=== PATIENT | male | born 1940 | race Caucasian/White ===

== ENCOUNTER 2022-07-17 18:02 | Observation (INO) | payer MEDICARE ==
[~2022-07-17] VITALS: Ht 185.5 cm; Wt 90.4 kg
[2022-07-17 18:34] LABS: BASOPHILS % (AUTO) 0 % (0-10); EOSINOPHILS % (AUTO) 0 % (0-10); HEMATOCRIT 40 % (40-54); HEMOGLOBIN 14.1 g/dL (13.3-17.7); LYMPHOCYTES # (AUTO) 1.9 10^3/uL (1.0-4.0); LYMPHOCYTES % (AUTO) 33 % (12-44); MEAN CORPUSCULAR HEMOGLOBIN 32 pg (25-34); MEAN CORPUSCULAR HGB CONC 35 g/dL (32-36); MEAN CORPUSCULAR VOLUME 91 fL (80-99); MEAN PLATELET VOLUME 9.5 fL (9.0-12.2); MONOCYTES # (AUTO) 0.7 10^3/uL (0.0-1.0); MONOCYTES % (AUTO) 12 % (0-12); NEUTROPHILS # (AUTO) 3.1 10^3/uL (1.8-7.8); NEUTROPHILS % (AUTO) 54 % (42-75); PLATELET COUNT 175 10^3/uL (130-400); WHITE BLOOD COUNT 5.8 10^3/uL (4.3-11.0)
--- NOTE | 2022-07-17 18:40 | ED Syncope ---
General Chief Complaint: Dizziness/Syncope Stated Complaint: SYNCOPAL EPISODE/DIZZINESS Source of Information: Patient, Other (GRANDSON) History of Present Illness Date Seen by Provider: Jul 17, 2022 Time Seen by Provider: 18:12 Initial Comments PT ARRIVES VIA POV FROM HOME, WITH GRANDSON PT ARRIVES IN HIS OWN WHEELCHAIR FROM HOME AND WITH HIS CANE PT LIVES AT HOME WITH HIS STATES HE WAS WALKING TO THE KITCHEN AND THE NEXT THING HE KNOWS, HE WOKE UP ON THE FLOOR LYNN STATES THIS EPISODE WAS WITNESSED BY PT'S --PT SLUMPED AGAINST THE REFRIGERATOR AND SLID DOWN THE FLOOR AND ENDED UP IN A SEMI-SITTING POSITION AGAINST THE REFRIGERATOR--NO TRAUMA REPORTED THAT THE EPISODE LASTED 30-40 SECONDS, AND HE WAS BRIEFLY SNORING NO REPORTED SEIZURE ACTIVITY LYNN WAS CALLED, WHO BROUGHT HIM TO THE ER. GRANDSON STATES HE WAS VERY DIZZY ON THE WAY HERE PT STATES HE FEELS FINE NOW, AND DIZZINESS IS GONE. PT DENIES ANY SYMPTOMS OF ANY KIND PRIOR TO THE EPISODE PT DENIES ANY SYMPTOMS NOW, OTHER THAN HIS CHRONIC HIP PAIN--STATES IT IS NO DIFFERENT AT ALL THAN HIS NORMAL PAIN . DENIES PAIN ANYWHERE ELSE DENIES HEADACHE DENIES PALPITATIONS OR CHEST PAIN DENIES SHORTNESS OF BREATH DENIES VISION CHANGES DENIES PARESTHESIAS OR MOTOR DEFICITS DENIES GI SYMPTOMS NO SWEATS NO FEVER OR RECENT ILLNESS PT IS NOT ON ASPIRIN OR BLOOD THINNERS NO HISTORY OF SIMILAR STATES HE HAS HAD DIZZY SPELLS 3 TIMES IN THE PAST, BUT NEVER PASSED OUT BEFORE--LATER STATES HE ALMOST HAS PASSED OUT WITH PRIOR EPISODES--BROUGHT HIM DOWN TO HIS KNEES BEFORE, BUT NEVER COMPLETELY PASSED OUT. DENIES ANY HEART PROBLEMS, NO HISTORY OF STROKES OR DIABETES STATES HE HAS HTN, PROSTATE PROBLEMS, ARTHRITIS AND GOUT DENIES ANY MISSED OR CHANGED DOSES OF MEDICATIONS. PT DRINKS 5 BEERS EVERY DAY, AND HAS HAD 5 BEERS TODAY PRIOR TO THIS EPISODE PT USED TO SMOKE 4 PPD OF CIGARETTES, BUT QUIT 30 YEARS AGO. PT SITS OUTSIDE WITH A FAN ON HIM ALL DAY--STATES HE GOES OUTSIDE AROUND 0700 AND SITS OUTSIDE ALL DAY LONG, EVERY DAY AND HAS DONE THIS FOR YEARS. TODAY WAS NOT ANY DIFFERENT THAN NORMAL TEMP OUTSIDE WAS AROUND 100 DEGREES TODAY PCP: DR. CASAS IN [place] Allergies and Home Medications Allergies Coded Allergies: No Known Drug Allergies (Unverified , 07/17/22) Patient Home Medication List Home Medication List Reviewed: Yes Review of Systems Constitutional: see HPI, dizziness EENTM: no symptoms reported Respiratory: no symptoms reported Cardiovascular: No chest pain, No edema, No palpitations; syncope; No vascular heart diseas Gastrointestinal: no symptoms reported Genitourinary: no symptoms reported Musculoskeletal: see HPI Skin: no symptoms reported Psychiatric/Neurological: See HPI; Denies Headache, Denies Numbness, Denies Paresthesia, Denies Seizure, Denies Tingling, Denies Tremors, Denies Weakness Past Vzaawjg-Gdmebj-Gnlbss Hx Patient Social History Tobacco Use?: Yes Tobacco type used: Cigarettes Smoking Status: Former Smoker Smokeless Tobacco Frequency: Never a User Use of E-Cig and/or Vaping Zana: Never a User Substance use?: No Alcohol Use?: Yes Alcohol type: Beer Alcohol Frequency: Daily Past Medical History Surgeries: Yes Tonsillectomy Respiratory: No Cardiac: Yes Hypertension Neurological: No Genitourinary: Yes Prostate Problems Gastrointestinal: No Musculoskeletal: Yes Arthritis, Gout Endocrine: No HEENT: No Cancer: No Psychosocial: No Integumentary: No Blood Disorders: No Family Medical History SOCIAL HISTORY: -SMOKED 4 PPD, QUIT 30 YEARS AGO -DRINKS "5 BEERS" EVERY DAY -DENIES DRUG USE Physical Exam Vital Signs Vital Signs - First Documented 07/17/22 18:15 Temp 36.5 Pulse 62 Resp 24 B/P (MAP) 147/89 (108) Pulse Ox 95 O2 Delivery Room Air Capillary Refill : Height, Weight, BMI Height: '" Weight: lbs. oz. kg; BMI Method: General Appearance: No Apparent Distress, WD/WN, Other (VERY TALKATIVE, DOES NOT APPEAR ILL OR TO BE IN ANY DISCOMFORT OR DISTRESS. STRONG ODOR OF ETOH) HEENT: PERRL/EOMI, Normal ENT Inspection, Pharynx Normal Neck: Full Range of Motion, Normal Inspection, Non Tender, Supple; No Carotid Bruit, No JVD Cardiovascular: Regular Rate, Rhythm, No Edema, No Gallop, No JVD, No Murmur, Normal Peripheral Pulses Respiratory: Chest Non Tender, Normal Breath Sounds, No Accessory Muscle Use, No Respiratory Distress Gastrointestinal: Normal Bowel Sounds, No Organomegaly, No Pulsatile Mass, Non Tender, Soft Back: Normal Inspection, No CVA Tenderness, No Vertebral Tenderness Extremities: Normal Capillary Refill, Normal Inspection, Normal Range of Motion, Non Tender, No Calf Tenderness, No Pedal Edema Neurologic/Psychiatric: Alert, Oriented x3, No Motor/Sensory Deficits, Normal Mood/Affect, hand glass cutter II-XII Norm as Tested Cranial Nerves: PERRL Motor/Sensory: No Motor Deficit, No Sensory Deficit Skin: Normal Color, Warm/Dry Progress/Results/Core Measures Results/Orders Lab Results Laboratory Tests Test 07/17/22 18:25 07/17/22 18:28 07/17/22 20:14 07/17/22 22:03 Range/Units White Blood Count 5.8 4.3-11.0 10^3/uL Red Blood Count 4.38 4.30-5.52 10^6/uL Hemoglobin 14.1 13.3-17.7 g/dL Hematocrit 40 40-54 % Mean Corpuscular Volume 91 80-99 fL Mean Corpuscular Hemoglobin 32 25-34 pg Mean Corpuscular Hemoglobin Concent 35 32-36 g/dL Red Cell Distribution Width 12.7 10.0-14.5 % Platelet Count 175 130-400 10^3/uL Mean Platelet Volume 9.5 9.0-12.2 fL Immature Granulocyte % (Auto) 1 % Neutrophils (%) (Auto) 54 42-75 % Lymphocytes (%) (Auto) 33 12-44 % Monocytes (%) (Auto) 12 0-12 % Eosinophils (%) (Auto) 0 0-10 % Basophils (%) (Auto) 0 0-10 % Neutrophils # (Auto) 3.1 1.8-7.8 10^3/uL Lymphocytes # (Auto) 1.9 1.0-4.0 10^3/uL Monocytes # (Auto) 0.7 0.0-1.0 10^3/uL Eosinophils # (Auto) 0.0 0.0-0.3 10^3/uL Basophils # (Auto) 0.0 0.0-0.1 10^3/uL Immature Granulocyte # (Auto) 0.1 0.0-0.1 10^3/uL Sodium Level 132 L 135-145 MMOL/L Potassium Level 3.6 3.6-5.0 MMOL/L Chloride Level 100 98-107 MMOL/L Carbon Dioxide Level 16 L 21-32 MMOL/L Anion Gap 16 H 5-14 MMOL/L Blood Urea Nitrogen 13 7-18 MG/DL Creatinine 0.88 0.60-1.30 MG/DL Estimat Glomerular Filtration Rate 87 BUN/Creatinine Ratio 15 Glucose Level 108 H 70-105 MG/DL Calcium Level 8.6 8.5-10.1 MG/DL Corrected Calcium 8.4 L 8.5-10.1 MG/DL Magnesium Level 2.0 1.6-2.4 MG/DL Total Bilirubin 0.5 0.1-1.0 MG/DL Aspartate Amino Transf (AST/SGOT) 31 5-34 U/L Alanine Aminotransferase (ALT/SGPT) 16 0-55 U/L Alkaline Phosphatase 55 40-136 U/L Total Creatine Kinase 416 H 462 H 30-200 U/L Creatine Kinase MB 7.3 *H 8.9 *H <6.6 NG/ML Myoglobin 336.8 H 276.5 H 10.0-92.0 NG/ML Troponin I < 0.028 < 0.028 <0.028 NG/ML Total Protein 6.8 6.4-8.2 GM/DL Albumin 4.2 3.2-4.5 GM/DL Serum Alcohol 118 H <10 MG/DL Glucometer 108 70-110 MG/DL Urine Color YELLOW Urine Clarity CLEAR Urine pH 5.0 5-9 Urine Specific [place] <=1.005 1.016-1.022 Urine Protein NEGATIVE NEGATIVE Urine Glucose (UA) NEGATIVE NEGATIVE Urine Ketones NEGATIVE NEGATIVE Urine Nitrite NEGATIVE NEGATIVE Urine Bilirubin NEGATIVE NEGATIVE Urine Urobilinogen 0.2 < = 1.0 MG/DL Urine Leukocyte Esterase NEGATIVE NEGATIVE Urine RBC (Auto) NEGATIVE NEGATIVE Urine RBC NONE /HPF Urine WBC NONE /HPF Urine Crystals NONE /LPF Urine Bacteria NEGATIVE /HPF Urine Casts NONE /LPF Urine Mucus NEGATIVE /LPF Urine Culture Indicated NO My Orders Orders - ZULEYMA CASE DO Accucheck Stat ONCE (07/17/22 18:12) Ed Iv/Invasive Line Start (07/17/22 18:12) Ekg Tracing (07/17/22 18:12) O2 (07/17/22 18:12) Monitor-Rhythm Ecg Trace Only (07/17/22 18:12) Ct Head Wo-R/O Stroke (07/17/22 18:12) Chest 1 View, Ap/Pa Only (07/17/22 18:12) Alcohol (07/17/22 18:12) Cbc With Automated Diff (07/17/22 18:12) Comprehensive Metabolic Panel (07/17/22 18:12) Creatine Kinase (07/17/22 18:12) Creatine Kinase Mb (07/17/22 18:12) Magnesium (07/17/22 18:12) Ua Culture If Indicated (07/17/22 18:12) Myoglobin Serum (07/17/22 18:12) Troponin I [place] (07/17/22 18:12) Ed Iv/Invasive Line Start (07/17/22 18:12) Ed Iv/Invasive Line Start (07/17/22 19:12) Lactated Ringers (Lr 1000 Ml Iv Solution (07/17/22 19:15) Pelvis/Jake Hips 5> Views (07/17/22 19:31) Lidocaine 2% (Urojet) (Xylocaine Urojet) (07/17/22 19:45) Ct Thoracic/Lumbar Spine Wo (07/17/22 20:25) Ct Pelvis Wo (07/17/22 20:25) Fentanyl Inj (Sublimaze Injection) (07/17/22 20:26) Ekg Tracing (07/17/22 20:57) Creatine Kinase (07/17/22 20:57) Creatine Kinase Mb (07/17/22 20:57) Myoglobin Serum (07/17/22 20:57) Troponin I [place] (07/17/22 20:57) Medications Given in ED Current Medications Medications Dose Ordered Sig/Krystyna Route Start Time Stop Time Status Last Admin Dose Admin Lactated Ringer's 1,000 ml @ 0 mls/hr Q0M ONCE IV 07/17/22 19:15 07/17/22 19:16 DC 07/17/22 19:29 0 MLS/HR Vital Signs/I&O 07/17/22 18:15 Temp 36.5 Pulse 62 Resp 24 B/P (MAP) 147/89 (108) Pulse Ox 95 O2 Delivery Room Air FSBG Bedside Testing Finger Stick Blood Glucose: 108 Progress Progress Note : Progress Note COAG MACHINE DOWN ALL WEEKEND PT IS COMPLETELY ASYMTOMATIC FOR ENTIRE ER STAY VITALS STABLE REPEAT TROPONIN AND EKG ARE UNCHANGED. Initial ECG Impression Date: Jul 17, 2022 Initial ECG Impression Time: 18:18 Initial ECG Rate: 62 Initial ECG Rhythm: Normal Sinus Initial ECG Comparisson: No Previous ECG Available EKG : EKG Time: 22:08 Rate: 68 Rhythm: Normal Sinus ECG Comparisson: Unchanged Diagnostic Imaging Comments CXR--PER RADIOLOGIST REPORT FINDINGS: The cardiomediastinal silhouette is unremarkable. The pulmonary vasculature is within normal limits. The lungs and pleural spaces are clear. IMPRESSION: No evidence of an acute cardiopulmonary process. PELVIS XRAY-- FINDINGS: 5 views of the pelvis and hips. There is no hip fracture. No dislocation. Along the sacrum bilaterally linear densities are noted and nonspecific. Although this could be vascular, if there is focal sacral pain, a sacral alar fracture is not excluded. Correlate with site of pain. Calcifications throughout the pelvis and scrotum, nonspecific, likely phleboliths. IMPRESSION: Density superimposed upon the sacral ala, possibly vascular in nature but if there is focal point tenderness sacral alar fracture is not excluded. Remaining osseous structures intact. CT HEAD--PER RADIOLOGIST REPORT FINDINGS: There is chronic ischemic disease in a periventricular and deep white matter distribution. Mild vascular calcification is noted. There is no mass, mass effect or midline shift. No hydrocephalus. No acute hemorrhage or infarct. Age-appropriate atrophy is noted. Paranasal sinuses and mastoid air cells are clear. IMPRESSION: Chronic findings, no acute intracranial process. CT LUMBAR SPINE--PER RADIOLOGIST REPORT FINDINGS: There is normal height and alignment of the thoracic spine with no fractures appreciated. Marked degenerative changes noted in the visualized lower cervical region. There is atherosclerotic disease. Visualized lungs demonstrate emphysematous changes with no acute abnormality appreciated. Within the lumbar spine, there is grade 1 anterolisthesis at L5-S1 with bilateral pars defects noted. Minimal grade 1 retrolisthesis seen at L3-L4. Remaining alignment is maintained. Vertebral body heights maintained. Marked endplate sclerosis and intervertebral disc space narrowing noted at L5-S1. No acute fractures identified. IMPRESSION: 1. Degenerative findings throughout the lumbar spine as described above with bilateral pars defects at L5 and secondary grade 1 anterolisthesis at L5-S1. No acute fractures in the thoracic or lumbar region. CT PELVIS--PER RADIOLOGIST REPORT FINDINGS: There are degenerative changes throughout both hips. The visualized proximal femurs intact. Moderate narrowing in both hips with spurring present. The sacrum is intact with the previously described abnormality on radiographs likely caused by superimposed marked atherosclerotic disease within the vasculature. 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 There is no acute osseous abnormality within the pelvis. Intrapelvic structures demonstrate atherosclerotic disease and diverticular disease without evidence for diverticulitis. No free fluid. IMPRESSION: Chronic findings, as above, with no acute process appreciated. Reviewed: Reviewed by Me Departure Communication (Admissions) [id number]--PAGING DR. JUARES 2244--SPOKE WITH DR. JUARES, ADVISES TO ADMIT TO HOSPITALIST AND HE WILL SEE IN CONSULT 2248--SPOKE WITH DR. DIXON, HOSPITALIST, ACCEPTS PT FOR ADMIT. Impression Primary Impression: Syncope Additional Impression: Alcohol intoxication Disposition: ADMITTED INPATIENT Condition: Stable Admissions Decision to Admit Reason: Admit from ER (General) Decision to Admit/Date: Jul 17, 2022 Time/Decision to Admit Time: 22:45 Departure-Patient Inst. Referrals: WISAM CASAS MD (PCP/Family) Primary Care Physician ZULEYMA CASE DO Jul 17, 2022 18:40
--- NOTE | 2022-07-17 18:40 | Diagnostic Imaging Report ---
INDICATION: Syncopal episode. EXAMINATION: Chest, 07/17/2022. FINDINGS: The cardiomediastinal silhouette is unremarkable. The pulmonary vasculature is within normal limits. The lungs and pleural spaces are clear. IMPRESSION: No evidence of an acute cardiopulmonary process. Dictated by: Dictated on workstation # [id number]
--- NOTE | 2022-07-17 18:43 | Diagnostic Imaging Report ---
INDICATION: Syncopal episode, dizziness and weakness. EXAMINATION: CT of the brain without contrast, 07/17/2022. All CT scans use one or more of the following dose optimizing techniques: automated exposure control, MA and/or KvP adjustment based on patient size and exam type or iterative reconstruction. FINDINGS: There is chronic ischemic disease in a periventricular and deep white matter distribution. Mild vascular calcification is noted. There is no mass, mass effect or midline shift. No hydrocephalus. No acute hemorrhage or infarct. Age-appropriate atrophy is noted. Paranasal sinuses and mastoid air cells are clear. IMPRESSION: Chronic findings, no acute intracranial process. Dictated by: Dictated on workstation # [id number]
[2022-07-17 18:51] LABS: ALBUMIN 4.2 GM/DL (3.2-4.5); CHLORIDE 100 MMOL/L (98-107); POTASSIUM 3.6 MMOL/L (3.6-5.0); SODIUM 132 MMOL/L (135-145)
[2022-07-17 18:52] LABS: CALCIUM 8.6 MG/DL (8.5-10.1)
[2022-07-17 18:53] LABS: GLUCOSE 108 MG/DL (70-105); TOTAL PROTEIN 6.8 GM/DL (6.4-8.2)
[2022-07-17 18:54] LABS: CARBON DIOXIDE 16 MMOL/L (21-32)
[2022-07-17 18:55] LABS: BILIRUBIN,TOTAL 0.5 MG/DL (0.1-1.0)
[2022-07-17 18:56] LABS: ALKALINE PHOSPHATASE 55 U/L (40-136)
[2022-07-17 18:57] LABS: CREATININE SERUM 0.88 MG/DL (0.60-1.30); GFR ESTIMATED 87
[2022-07-17 18:58] LABS: BUN/CREATININE RATIO 15
[2022-07-17 19:00] LABS: ALANINE AMINOTRANSFERASE 16 U/L (0-55); CREATINE KINASE 416 U/L (30-200)
[2022-07-17 19:13] LABS: CREATINE KINASE MB 7.3 NG/ML (<6.6)
[2022-07-17] MEDS ORDERED: LACTATED RINGERS 1,000 ML IV ONE (19:15)
[2022-07-17] MEDS ORDERED: LIDOCAINE UROJET 2% GEL 10 ML PKG TOP ONE (19:45)
--- NOTE | 2022-07-17 20:20 | Diagnostic Imaging Report ---
INDICATION: Status post fall, pain, passed out. EXAMINATION: Pelvis and hips, 07/17/2022. FINDINGS: 5 views of the pelvis and hips. There is no hip fracture. No dislocation. Along the sacrum bilaterally linear densities are noted and nonspecific. Although this could be vascular, if there is focal sacral pain, a sacral alar fracture is not excluded. Correlate with site of pain. Calcifications throughout the pelvis and scrotum, nonspecific, likely phleboliths. IMPRESSION: Density superimposed upon the sacral ala, possibly vascular in nature but if there is focal point tenderness sacral alar fracture is not excluded. Remaining osseous structures intact. Dictated by: Dictated on workstation # [id number]
[2022-07-17 20:21] LABS: BILIRUBIN,URINE NEGATIVE (NEGATIVE); CLARITY,URINE CLEAR; COLOR,URINE YELLOW; GLUCOSE, URINE (UA) NEGATIVE (NEGATIVE); KETONES,URINE NEGATIVE (NEGATIVE); LEUKOCYTE ESTERASE ,URINE NEGATIVE (NEGATIVE); NITRITE,URINE NEGATIVE (NEGATIVE); PROTEIN,URINE NEGATIVE (NEGATIVE)
[2022-07-17] MEDS ORDERED: fentaNYL INJ 100 MCG/2 ML AMP IVP STA (20:26)
[2022-07-17 20:54] LABS: BACTERIA,URINE NEGATIVE /HPF
--- NOTE | 2022-07-17 21:29 | Diagnostic Imaging Report ---
INDICATION: Fall, low back pain. EXAMINATION: CT pelvis without contrast, 07/17/2022. All CT scans use one or more of the following dose optimizing techniques: automated exposure control, MA and/or KvP adjustment based on patient size and exam type or iterative reconstruction. FINDINGS: There are degenerative changes throughout both hips. The visualized proximal femurs intact. Moderate narrowing in both hips with spurring present. The sacrum is intact with the previously described abnormality on radiographs likely caused by superimposed marked atherosclerotic disease within the vasculature. 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 There is no acute osseous abnormality within the pelvis. Intrapelvic structures demonstrate atherosclerotic disease and diverticular disease without evidence for diverticulitis. No free fluid. IMPRESSION: Chronic findings, as above, with no acute process appreciated. Dictated by: Dictated on workstation # [id number]
--- NOTE | 2022-07-17 21:39 | Diagnostic Imaging Report ---
PROCEDURE: CT thoracic and lumbar spine without contrast. TECHNIQUE: Multiple contiguous axial images were obtained through the thoracic and lumbar spine without the use of intravenous contrast. Sagittal and coronal reformations were then performed. All CT scans use one or more of the following dose optimizing techniques: automated exposure control, MA and/or KvP adjustment based on a patient size and exam type, or iterative reconstruction. INDICATION: Trauma, pain EXAMINATION: CT thoracic and lumbar spine 07/17/2022 FINDINGS: There is normal height and alignment of the thoracic spine with no fractures appreciated. Marked degenerative changes noted in the visualized lower cervical region. There is atherosclerotic disease. Visualized lungs demonstrate emphysematous changes with no acute abnormality appreciated. Within the lumbar spine, there is grade 1 anterolisthesis at L5-S1 with bilateral pars defects noted. Minimal grade 1 retrolisthesis seen at L3-L4. Remaining alignment is maintained. Vertebral body heights maintained. Marked endplate sclerosis and intervertebral disc space narrowing noted at L5-S1. No acute fractures identified. IMPRESSION: 1. Degenerative findings throughout the lumbar spine as described above with bilateral pars defects at L5 and secondary grade 1 anterolisthesis at L5-S1. No acute fractures in the thoracic or lumbar region. Dictated by: Dictated on workstation # [id number]
[2022-07-17 22:26] LABS: CREATINE KINASE 462 U/L (30-200)
[2022-07-17 22:40] LABS: CREATINE KINASE MB 8.9 NG/ML (<6.6)
[2022-07-18] VITALS (10 sets, daily range): BP systolic 132–178; BP diastolic 58–90
--- NOTE | 2022-07-18 01:29 | Tele-ICU Consult ---
History of Present Illness History of Present Illness Date Seen by Provider: Jul 18, 2022 Time Seen by Provider: :22 History of Present Illness [facility] admit note 81 yo M brought to ED for syncopal episode, no Sz activity noted by family. Pt no longer dizzy. no CP, SOB, palpitations, Has been light-headed in past but not previous syncope No Hx of heart disease. PMH HTN, gout, arthritis, has 5 beers daily, ex smoker In ED HR 62 Lab showed Hb 14, Na 132, HCO3 16, troponin, normal, EKG occ PVC, QTc 477 CXR ok, CT head some chronic ischemic changes, Spine CT, Pelvis CT show DJD Allergies and Home Medications Allergies Coded Allergies: No Known Drug Allergies (Unverified , 07/17/22) Past Medical/Social/Family Hx Patient Social History Tobacco Use?: Yes Tobacco type used: Cigarettes Smoking Status: Former Smoker Smokeless Tobacco Frequency: Never a User Use of E-Cig and/or Vaping dev: No E-Cig and/or Vaping Freq: Never a User Substance use?: No Alcohol Use?: Yes Alcohol type: Beer Alcohol Frequency: Daily Pt stated abuse/neglect: No Immunizations Up To Date Influenza Vaccine Up-to-Date: No; Not Current First/Initial COVID19 Vaccinat: 2020 Second COVID19 Vaccination Alfredo: 2020 Current Status Advance Directives: No Communicates: Verbally Primary Language: Bahraini Preferred Spoken Language: Bahraini Is interpretation needed?: No Family Medical History Family Hx: SOCIAL HISTORY: -SMOKED 4 PPD, QUIT 30 YEARS AGO -DRINKS "5 BEERS" EVERY DAY -DENIES DRUG USE Review of Systems Constitutional: see HPI EENTM: see HPI Respiratory: see HPI Cardiovascular: see HPI Gastrointestinal: see HPI Genitourinary: see HPI Musculoskeletal: see HPI Skin: see HPI Psychiatric/Neurological: See HPI Focused Exam Height, Weight, BMI Height: '" Weight: lbs. oz. kg; 29.00 BMI Method: Exam Exam Patient acknowledged, consented, and participated in this virtual visit which was conducted using real time audio/video Vital Signs Date Time Temp Pulse Resp B/P (MAP) Pulse Ox O2 Delivery O2 Flow Rate FiO2 07/18/22 00:54 80 24 128/78 95 Room Air 07/17/22 18:15 36.5 62 24 147/89 (108) 95 Room Air Height & Weight Height: '" Weight: lbs. oz. kg; 29.00 BMI Method: General Appearance: No Apparent Distress, WD/WN, Other (VERY TALKATIVE, DOES NOT APPEAR ILL OR TO BE IN ANY DISCOMFORT OR DISTRESS. STRONG ODOR OF ETOH) HEENT: PERRL/EOMI, Normal ENT Inspection, Pharynx Normal Neck: Full Range of Motion, Normal Inspection, Non Tender, Supple, Carotid Bruit; No JVD Respiratory: Chest Non Tender, Normal Breath Sounds, No Accessory Muscle Use, No Respiratory Distress Cardiovascular: Regular Rate, Rhythm, No Edema, No Gallop, No JVD, No Murmur, Normal Peripheral Pulses Capillary Refill: Less Than 3 Seconds Extremity: Normal Capillary Refill, Normal Inspection, Normal Range of Motion, Non Tender, No Calf Tenderness, No Pedal Edema Neurologic/Psychiatric: Alert, Oriented x3, No Motor/Sensory Deficits, Normal Mood/Affect, senior digital designer II-XII Norm as Tested Skin: Normal Color, Warm/Dry Results Lab Laboratory Tests 07/17/22 18:25 Assessment/Plan Assessment/Plan Syncopal episode, etiology not clear, bradycardia?, Not clear why HCO3 16, will repeat, has mild AG at 16, EtOH level 118 would hydrate re check labs in am and monitor cardiac rhythm Critical Care: Critically Ill Patient Time spent with patient (mins): 25 URTHY JENKINS MD Jul 18, 2022 01:29
[2022-07-18] MEDS: D5 1/2 NS W/KCL 20 MEQ/L 1,000 ML IV SCH ×2 (03:08→13:12)
[2022-07-18 05:29] LABS: BASOPHILS % (AUTO) 0 % (0-10); EOSINOPHILS % (AUTO) 0 % (0-10); HEMATOCRIT 43 % (40-54); LYMPHOCYTES # (AUTO) 1.9 10^3/uL (1.0-4.0); LYMPHOCYTES % (AUTO) 30 % (12-44); MEAN CORPUSCULAR HEMOGLOBIN 32 pg (25-34); MEAN CORPUSCULAR HGB CONC 35 g/dL (32-36); MEAN CORPUSCULAR VOLUME 92 fL (80-99); MEAN PLATELET VOLUME 9.5 fL (9.0-12.2); MONOCYTES # (AUTO) 0.6 10^3/uL (0.0-1.0); MONOCYTES % (AUTO) 10 % (0-12); NEUTROPHILS # (AUTO) 3.6 10^3/uL (1.8-7.8); NEUTROPHILS % (AUTO) 59 % (42-75); PLATELET COUNT 172 10^3/uL (130-400); WHITE BLOOD COUNT 6.2 10^3/uL (4.3-11.0)
[2022-07-18 05:43] LABS: CALCIUM 8.9 MG/DL (8.5-10.1)
[2022-07-18 05:48] LABS: CREATININE SERUM 0.81 MG/DL (0.60-1.30)
[2022-07-18 06:05] LABS: CREATINE KINASE MB 8.9 NG/ML (<6.6)
--- NOTE | 2022-07-18 08:46 | Short Stay Summary-Hospitalist ---
History of Present Illness HPI/Chief Complaint Patient is an 81-year-old male with past medical history of hypertension, BPH, gout, daily alcohol use who presented to the emergency department due to syncope. He states that he had a usual day yesterday where he felt well. He sat outside for most of the day as he does every day. He drank a Mountain Dew, a Coke, 2 bottles of water, and then 5 beers in the evening as he does every day not long after he went inside and was walking in the kitchen when his noticed that he passed out. He does not recall what happened exactly. Per ER note he slumped over and slid down the refrigerator. He was out for roughly 30 seconds. He states when he woke up he was back to his normal mentation though he did have a backache. He denies any urinary incontinence or tongue biting. He states that this is happened before though he is never actually passed out. He states it is always when he stands up and takes a few steps. He has thought it has been due to his blood pressure. He checks his blood pressure every day and states it is normal to low and has actually quit taking his evening blood pressure pill because of this. Source: patient Date Seen 07/18/22 Time Seen by a Provider: 08:41 Attending Physician Jamey Levi MD PCP Admitting Physician: Taylor Louis MD Attending Physician: Taylor Louis MD Referring Physician Date of Admission Jul 17, 2022 at 22:50 Home Medications & Allergies Home Medications Reviewed patient Home Medication Reconciliation performed by pharmacy medication reconciliations radio/tv technician and/or nursing. Patients Allergies have been reviewed. Allergies Allergies Coded Allergies No Known Drug Allergies (Unverified07/17/22) Past Woybfiy-Hzwjku-Rszffl Hx Patient Social History Tobacco Use?: No Tobacco type used: Cigarettes Smoking Status: Former Smoker Smokeless Tobacco Frequency: Never a User Use of E-Cig and/or Vaping dev: No Use of E-Cig and/or Vaping Zana: Never a User Substance use?: No Alcohol Use?: Yes Alcohol type: Beer Alcohol Frequency: Daily Additional Alcohol Comments: 5 BEERS PER NIGHT Pt feels they are or have been: No Immunizations Up To Date First/Initial COVID19 Vaccinat: 2020 Second COVID19 Vaccination Alfredo: 2020 Tetanus Booster (TDap): More Than 5 Years Hepatitis A: No Hepatitis B: Yes Current Status Advance Directives: No Communicates: Verbally Primary Language: Citizen Of [place] Preferred Spoken Language: Citizen Of [place] Is interpretation needed?: No Past Medical History Surgeries: Tonsillectomy Hypertension Prostate Problems Arthritis, Gout Blood Disorders: No Family Medical History SOCIAL HISTORY: -SMOKED 4 PPD, QUIT 30 YEARS AGO -DRINKS "5 BEERS" EVERY DAY -DENIES DRUG USE Review of Systems Constitutional: No chills; dizziness; No fever EENTM: no symptoms reported Respiratory: No dyspnea on exertion, No short of breath Cardiovascular: No chest pain, No edema, No Hx of Intervention, No palpitations; syncope Gastrointestinal: No diarrhea, No nausea, No vomiting Genitourinary: no symptoms reported Musculoskeletal: back pain Skin: no symptoms reported Psychiatric/Neurological: Denies Headache, Denies Numbness, Denies Paresthesia, Denies Seizure, Denies Tingling Physical Exam Physical Exam Vital Signs Vital Signs - First Documented 07/17/22 18:15 Temp 36.5 Pulse 62 Resp 24 B/P (MAP) 147/89 (108) Pulse Ox 95 O2 Delivery Room Air Capillary Refill : Less Than 3 Seconds Height, Weight, BMI Height: '" Weight: lbs. oz. kg; 26.27 BMI Method: General Appearance: No Apparent Distress, WD/WN, Other (VERY TALKATIVE, DOES NOT APPEAR ILL OR TO BE IN ANY DISCOMFORT OR DISTRESS. STRONG ODOR OF ETOH) HEENT: PERRL/EOMI, Moist Mucous Membranes; No Scleral Icterus (L), No Scleral Icterus (R) Neck: Normal Inspection, Supple; No Carotid Bruit Respiratory: Lungs Clear, No Accessory Muscle Use, No Respiratory Distress Cardiovascular: Regular Rate, Rhythm, No Edema, No JVD, No Murmur, Normal Peripheral Pulses Gastrointestinal: Normal Bowel Sounds, No Pulsatile Mass, Non Tender, Soft Extremity: Normal Capillary Refill, Normal Inspection, Non Tender, No Calf Tenderness, No Pedal Edema Neurologic/Psychiatric: Alert, Oriented x3, Normal Mood/Affect; No Aphasia, No Facial Droop Skin: Normal Color, Warm/Dry Results Results/Procedures Labs Laboratory Tests 07/17/22 18:25 07/18/22 05:00 Patient resulted labs reviewed. Imaging: Reviewed Imaging Report Imaging [facility] [place], [place] NAME: CHARLES DIAS REC#: [id number] PT STATUS: REG ER : 1940 PHYSICIAN: ZULEYMA CASE DO ADMIT DATE: 07/17/22/ER Signed Date of Exam:07/17/22 CHEST 1 VIEW, AP/PA ONLY INDICATION: Syncopal episode. EXAMINATION: Chest, 07/17/2022. FINDINGS: The cardiomediastinal silhouette is unremarkable. The pulmonary vasculature is within normal limits. The lungs and pleural spaces are clear. IMPRESSION: No evidence of an acute cardiopulmonary process. Dictated by: Dictated on workstation # [id number] Dict: 07/17/22 1838 Trans: 07/17/222119 [facility] [id number] Interpreted by: DYLAN BONILLA MD Electronically signed by: DYLAN BONILLA MD 07/17/222119 [facility] [place] NAME: CHARLES DIAS [facility] REC#: [id number] PT STATUS: REG ER : 1940 PHYSICIAN: ZULEYMA CASE DO ADMIT DATE: 07/17/22/ER Signed Date of Exam:07/17/22 CT HEAD WO-R/O STROKE INDICATION: Syncopal episode, dizziness and weakness. EXAMINATION: CT of the brain without contrast, 07/17/2022. All CT scans use one or more of the following dose optimizing techniques: automated exposure control, MA and/or KvP adjustment based on patient size and exam type or iterative reconstruction. FINDINGS: There is chronic ischemic disease in a periventricular and deep white matter distribution. Mild vascular calcification is noted. There is no mass, mass effect or midline shift. No hydrocephalus. No acute hemorrhage or infarct. Age-appropriate atrophy is noted. Paranasal sinuses and mastoid air cells are clear. IMPRESSION: Chronic findings, no acute intracranial process. Dictated by: Dictated on workstation # [id number] Dict: 07/17/22 1840 Trans: 07/17/222249 [facility] [id number] Interpreted by: DYLAN BONILLA MD Electronically signed by: DYLAN BONILLA MD 09/18/22 2250 [facility] [place], [place] NAME: CHARLES DIAS [facility] REC#: [id number] PT STATUS: REG ER : 1940 PHYSICIAN: ZULEYMA CASE DO ADMIT DATE: 07/17/22/ER Signed Date of Exam:07/17/22 PELVIS/EDUARDO HIPS 5> VIEWS INDICATION: Status post fall, pain, passed out. EXAMINATION: Pelvis and hips, 07/17/2022. FINDINGS: 5 views of the pelvis and hips. There is no hip fracture. No dislocation. Along the sacrum bilaterally linear densities are noted and nonspecific. Although this could be vascular, if there is focal sacral pain, a sacral alar fracture is not excluded. Correlate with site of pain. Calcifications throughout the pelvis and scrotum, nonspecific, likely phleboliths. IMPRESSION: Density superimposed upon the sacral ala, possibly vascular in nature but if there is focal point tenderness sacral alar fracture is not excluded. Remaining osseous structures intact. Dictated by: Dictated on workstation # [id number] Dict: 07/17/222014 Trans: 07/17/222152 [facility] [id number] Interpreted by: DYLAN BONILLA MD Electronically signed by: DYLAN BONILLA MD 07/17/222152 [facility] [place], [place] NAME: CHARLES DIAS [facility] REC#: [id number] PT STATUS: REG ER : 1940 PHYSICIAN: ZULEYMA CASE DO ADMIT DATE: 07/17/22/ER Signed Date of Exam:07/17/22 CT PELVIS WO INDICATION: Fall, low back pain. EXAMINATION: CT pelvis without contrast, 07/17/2022. All CT scans use one or more of the following dose optimizing techniques: automated exposure control, MA and/or KvP adjustment based on patient size and exam type or iterative reconstruction. FINDINGS: There are degenerative changes throughout both hips. The visualized proximal femurs intact. Moderate narrowing in both hips with spurring present. The sacrum is intact with the previously described abnormality on radiographs likely caused by superimposed marked atherosclerotic disease within the vasculature. 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 There is no acute osseous abnormality within the pelvis. Intrapelvic structures demonstrate atherosclerotic disease and diverticular disease without evidence for diverticulitis. No free fluid. IMPRESSION: Chronic findings, as above, with no acute process appreciated. Dictated by: Dictated on workstation # [id number] Dict: 07/17/222110 Trans: 07/17/222250 [facility] [id number] Interpreted by: DYLAN BONILLA MD Electronically signed by: DYLAN BONILLA MD 07/17/222250 [facility] [place] NAME: CHARLES DIAS [facility] REC#: [id number] PT STATUS: REG ER : 1940 PHYSICIAN: ZULEYMA CASE DO ADMIT DATE: 07/17/22/ER Signed Date of Exam:07/17/22 CT THORACIC/LUMBAR SPINE WO PROCEDURE: CT thoracic and lumbar spine without contrast. TECHNIQUE: Multiple contiguous axial images were obtained through the thoracic and lumbar spine without the use of intravenous contrast. Sagittal and coronal reformations were then performed. All CT scans use one or more of the following dose optimizing techniques: automated exposure control, MA and/or KvP adjustment based on a patient size and exam type, or iterative reconstruction. INDICATION: Trauma, pain EXAMINATION: CT thoracic and lumbar spine 07/17/2022 FINDINGS: There is normal height and alignment of the thoracic spine with no fractures appreciated. Marked degenerative changes noted in the visualized lower cervical region. There is atherosclerotic disease. Visualized lungs demonstrate emphysematous changes with no acute abnormality appreciated. Within the lumbar spine, there is grade 1 anterolisthesis at L5-S1 with bilateral pars defects noted. Minimal grade 1 retrolisthesis seen at L3-L4. Remaining alignment is maintained. Vertebral body heights maintained. Marked endplate sclerosis and intervertebral disc space narrowing noted at L5-S1. No acute fractures identified. IMPRESSION: 1. Degenerative findings throughout the lumbar spine as described above with bilateral pars defects at L5 and secondary grade 1 anterolisthesis at L5-S1. No acute fractures in the thoracic or lumbar region. Dictated by: Dictated on workstation # [id number] Dict: 07/17/222111 Trans: 07/17/222250 [facility] [id number] Interpreted by: DYLAN BONILLA MD Electronically signed by: DYLAN BONILLA MD 07/17/222250 Short Stay Diagnosis Discharge Diagnosis-Short Stay Admission Diagnosis Syncope Final Discharge Diagnosis Orthostatic hypotension Conclusion Plan Orthostatic hypotension Syncope HTN Symptoms consistent with orthostatic hypotension Orthostatics ordered Cardiology consulted Recommended increased water intake and compression stocking BP well controlled- hold home meds Home this afternoon if no further cardiac workup warranted TRENTON CAMARA MD Jul 18, 2022 08:46
--- NOTE | 2022-07-18 08:52 | Consultation-Cardiology ---
HPI-Cardiology Cardiology Consultation: Date of Consultation 07/18/22 Time Seen by a Provider: 08:15 Date of Admission 07-17-22 Attending Physician Jamey Levi MD Admitting Physician Admitting Physician: Taylor Louis MD Attending Physician: Taylor Louis MD Consulting Physician Adriane Kang MD HPI: Chief Complaint: Syncope Mr. Olivo is an 81 yr old male admitted to ICU 4 from the ED d/t syncope. He reports he had been sitting outside all day yesterday; which he does on a daily basis. He reports he typically drinks some tap water, but drinks soda and has 5 beers a day, usually he drinks the beer over a course of 2 hours. He reports he has had dizzy spells in the past which have been r/t changes in posture, but in the past he has been able to stand or sit and the symptoms resolve. He reports he is on Enalapril for high blood pressure which has been reduced in the past from twice a day to once a day. He reports the dose has been increased over the last few weeks d/t having high BP. He states in the last several weeks he has had 2 syncopal episodes. He reports the episodes are at the end of the day. He has been sitting in his recliner with his feet up. He will sit up and take 6-8 steps and he passes out, regaining consciousness when he hits the floor. He reports the last 2 episodes have happened without any symptoms preceding the events. He denies any n/v. He denies any diaphoresis. He denies any CP. No c/o LE swelling. No c/o palpitations. He denies any loss of bowel or bladder control. He reports he has some back pain following his fall yesterday. He states he feels well this morning. He also reports recently being starting of a second medication, Flomax, for his prostate. Review of Systems-Cardiology Review of Systems Constitutional: As described under HPI; No chills, No fever, No malaise Eyes: No blurred vision, No vision change Ears/Nose/Throat: No epistaxis, No nasal drainage, No recent hearing loss Respiratory: As described under HPI Cardiovascular: As described under HPI Gastrointestinal: No constipation, No diarrhea, No nausea, No vomiting Genitourinary: No dysuria, No hematuria Musculoskeletal: As describe under HPI Skin: No rash on exposed areas, No ulcerations on exposed areas Psychiatric/Neurological: syncope; No anxiety, No depression, No seizure, No focal weakness Hematologic: No bleeding abnormalities NEY-Fjwrin-Axtjwb Hx Patient Social History Smoking Status: Former Smoker Have you traveled recently?: No Alcohol Use?: Yes Pt feels they are or have been: No Tobacco type used: Cigarettes Past Medical History PMH As described under Assessment. Family Medical History Family Medical History: He reports his mother had a h/o CVA. He reports brother with a congenital heart defect who passed at age 70. Allergies and Home Medications Allergies Coded Allergies: No Known Drug Allergies (Unverified , 07/17/22) Patient Home Medication List Allopurinol (Allopurinol) 300 Mg Tablet, 300 MG PO 1200, (Reported) Entered as Reported by: EDI FAULKNER on 07/18/22920 Last Action: Reviewed Enalapril Maleate (Enalapril Maleate) 20 Mg Tablet, 20 MG PO DAILY, (Reported) Entered as Reported by: EDI FAULKNER on 07/18/22920 Last Action: Reviewed Finasteride (Finasteride) 5 Mg Tablet, 5 MG PO DAILY, (Reported) Entered as Reported by: EDI FAULKNER on 07/18/22920 Last Action: Reviewed Tamsulosin HCl (Flomax) 0.4 Mg Cap, 0.4 MG PO 1300, (Reported) Entered as Reported by: EDI FAULKNER on 07/18/22920 Last Action: Reviewed Physical Exam-Cardiology Physical Exam Vital Signs/I&O 07/18/22 07/18/22 07/18/22 07/18/22 04:00 04:00 05:11 07:00 Pulse 74 66 Resp 18 B/P (MAP) 139/76 (97) Pulse Ox 92 96 96 O2 Delivery Room Air Room Air Room Air 07/18/22 07/18/22 07/18/22 07/18/22 08:00 08:53 08:54 12:00 Pulse 64 67 65 68 71 Resp 18 B/P (MAP) 157/82 (107) 178/88 (118) 158/90 (112) 146/83 (104) 148/90 (109) Pulse Ox 96 97 O2 Delivery Room Air Room Air 07/18/22 13:00 Pulse 57 Capillary Refill : Less Than 3 Seconds Constitutional: AAO x 3, well-developed, well-nourished HEENT: PERRL, hearing is well preserved, oral hygience is good Neck: No carotid bruit; carotid pulses are 2 + bilaterally Respiratory: No accessory muscle use, No respiratory distress; chest expansion is symmetric, chest is bilaterally symmetric, lungs clear to auscultation Cardiovascular: regular rate-rhythm; No JVD; S1 and S2 Gastrointestinal: No tender; soft, round, audible bowel sounds Extremities: no lower extremity edema bilateral Neurologic/Psychiatric: grossly intact (moves all extremities) Skin: No rash on exposed areas, No ulcerations on exposed areas Data Review Labs Laboratory Tests 07/17/22 18:25: White Blood Count 5.8, Red Blood Count 4.38, Hemoglobin 14.1, Hematocrit 40, Mean Corpuscular Volume 91, Mean Corpuscular Hemoglobin 32, Mean Corpuscular Hemoglobin Concent 35, Red Cell Distribution Width 12.7, Platelet Count 175, Mean Platelet Volume 9.5, Immature Granulocyte % (Auto) 1, Neutrophils (%) (Auto) 54, Lymphocytes (%) (Auto) 33, Monocytes (%) (Auto) 12, Eosinophils (%) (Auto) 0, Basophils (%) (Auto) 0, Neutrophils # (Auto) 3.1, Lymphocytes # (Auto) 1.9, Monocytes # (Auto) 0.7, Eosinophils # (Auto) 0.0, Basophils # (Auto) 0.0, Immature Granulocyte # (Auto) 0.1, Sodium Level 132L, Potassium Level 3.6, Chloride Level 100, Carbon Dioxide Level 16L, Anion Gap 16H, Blood Urea Nitrogen 13, Creatinine 0.88, Estimat Glomerular Filtration Rate 87, BUN/Creatinine Ratio 15, Glucose Level 108H, Calcium Level 8.6, Corrected Calcium 8.4L, Magnesium Level 2.0, Total Bilirubin 0.5, Aspartate Amino Transf (AST/SGOT) 31, Alanine Aminotransferase (ALT/SGPT) 16, Alkaline Phosphatase 55, Total Creatine Kinase 416H, Creatine Kinase MB 7.3*H, Myoglobin 336.8H, Troponin I < 0.028, Total Protein 6.8, Albumin 4.2, Serum Alcohol 118H 07/17/22 18:28: Glucometer 108 07/17/22 20:14: Urine Color YELLOW, Urine Clarity CLEAR, Urine pH 5.0, Urine Specific [place] <=1.005, Urine Protein NEGATIVE, Urine Glucose (UA) NEGATIVE, Urine Ketones NEGATIVE, Urine Nitrite NEGATIVE, Urine Bilirubin NEGATIVE, Urine Urobilinogen 0.2, Urine Leukocyte Esterase NEGATIVE, Urine RBC (Auto) NEGATIVE, Urine RBC NONE, Urine WBC NONE, Urine Crystals NONE, Urine Bacteria NEGATIVE, Urine Casts NONE, Urine Mucus NEGATIVE, Urine Culture Indicated NO 07/17/22 22:03: Total Creatine Kinase 462H, Creatine Kinase MB 8.9*H, Myoglobin 276.5H, Troponin I < 0.028 07/18/22 01:15: Troponin I < 0.028 07/18/22 05:00: White Blood Count 6.2, Red Blood Count 4.69, Hemoglobin 15.0, Hematocrit 43, Mean Corpuscular Volume 92, Mean Corpuscular Hemoglobin 32, Mean Corpuscular Hemoglobin Concent 35, Red Cell Distribution Width 12.8, Platelet Count 172, Mean Platelet Volume 9.5, Immature Granulocyte % (Auto) 1, Neutrophils (%) (Auto) 59, Lymphocytes (%) (Auto) 30, Monocytes (%) (Auto) 10, Eosinophils (%) (Auto) 0, Basophils (%) (Auto) 0, Neutrophils # (Auto) 3.6, Lymphocytes # (Auto) 1.9, Monocytes # (Auto) 0.6, Eosinophils # (Auto) 0.0, Basophils # (Auto) 0.0, Immature Granulocyte # (Auto) 0.0, Sodium Level 139, Potassium Level 4.0, Chloride Level 104, Carbon Dioxide Level 20L, Anion Gap 15H, Blood Urea Nitrogen 11, Creatinine 0.81, Estimat Glomerular Filtration Rate 89, BUN/Creatinine Ratio 14, Glucose Level 116H, Calcium Level 8.9, Total Creatine Kinase 441H, Creatine Kinase MB 8.9*H Radiology NAME: CHARLES OLIVO [facility] REC#: [id number] PT STATUS: REG ER : 1940 PHYSICIAN: ZULEYMA CASE DO ADMIT DATE: 07/17/22/ER Signed Date of Exam:07/17/22 CHEST 1 VIEW, AP/PA ONLY INDICATION: Syncopal episode. EXAMINATION: Chest, 07/17/2022. FINDINGS: The cardiomediastinal silhouette is unremarkable. The pulmonary vasculature is within normal limits. The lungs and pleural spaces are clear. IMPRESSION: No evidence of an acute cardiopulmonary process. Dictated by: Dictated on workstation # [id number] Dict: 07/17/22 1838 Trans: 07/17/222119 [facility] [id number] Interpreted by: DYLAN BONILLA MD Electronically signed by: DYLAN BONILLA MD 07/17/222119 NAME: CHARLES OLIVO [facility] REC#: [id number] PT STATUS: REG ER : 1940 PHYSICIAN: ZULEYMA CASE DO ADMIT DATE: 07/17/22/ER Signed Date of Exam:07/17/22 CT HEAD WO-R/O STROKE INDICATION: Syncopal episode, dizziness and weakness. EXAMINATION: CT of the brain without contrast, 07/17/2022. All CT scans use one or more of the following dose optimizing techniques: automated exposure control, MA and/or KvP adjustment based on patient size and exam type or iterative reconstruction. FINDINGS: There is chronic ischemic disease in a periventricular and deep white matter distribution. Mild vascular calcification is noted. There is no mass, mass effect or midline shift. No hydrocephalus. No acute hemorrhage or infarct. Age-appropriate atrophy is noted. Paranasal sinuses and mastoid air cells are clear. IMPRESSION: Chronic findings, no acute intracranial process. Dictated by: Dictated on workstation # [id number] Dict: 07/17/22 1840 Trans: 07/17/222249 [facility] [id number] Interpreted by: DYLAN BONILLA MD Electronically signed by: DYLAN BONILLA MD 07/17/222249 ECG Impression ECG Initial ECG Rhythm: Normal Sinus A/P-Cardiology Assessment/Admission Diagnosis Syncope - undetermined etiology - possibly orthostatic hypotension d/t vol depletion/medications HTN BPH H/O tobaccoism - quit 30 yrs ago Daily ETOH usage - 5 beers a night Discussion and Recomendations Syncope of undetermined etiology - possibly orthostatic hypotension d/t vol depletion/medications - no bradyarrhythmia seen on tele Echocardiogram today Monitor lab - continue IVF - replace electrolytes as indicated Further recs will be based on his hospital course We would like to thank medical services for this consult LAVELLE ROSE Jul 18, 2022 08:52
[2022-07-18] MEDS ORDERED: ALLO300T2 PO (09:21)
[2022-07-18] MEDS ORDERED: FINA5TAB6 PO (09:21)
[2022-07-18] MEDS ORDERED: TMSL.4C PO (09:21)
[2022-07-18] MEDS ORDERED: ENAL20TA16 PO (09:21)
--- NOTE | 2022-07-18 11:41 | Consultation-Cardiology ---
HPI-Cardiology Cardiology Consultation: Date of Consultation 07/18/22 Time Seen by a Provider: 09:15 Date of Admission Attending Physician Jamey Levi MD Admitting Physician Admitting Physician: Taylor Louis MD Attending Physician: Eri Payton MD Consulting Physician KAILA JUARES MD, MA, FACP, FACC, [facility] [place] [facility] [place] HPI: Chief Complaint: Syncope Mr. Olivo is an 81 yr old male admitted to ICU 4 from the ED d/t syncope. He reports he had been sitting outside all day yesterday; which he does on a daily basis. He reports he typically drinks some tap water, but drinks soda and has 5 beers a day, usually he drinks the beer over a course of 2 hours. He reports he has had dizzy spells in the past which have been r/t changes in posture, but in the past he has been able to stand or sit and the symptoms resolve. He reports he is on Enalapril for high blood pressure which has been reduced in the past from twice a day to once a day. He reports the dose has been increased over the last few weeks d/t having high BP. He states in the last several weeks he has had 2 syncopal episodes. He reports the episodes are at the end of the day. He has been sitting in his recliner with his feet up. He will sit up and take 6-8 steps and he passes out, regaining consciousness when he hits the floor. He reports the last 2 episodes have happened without any symptoms preceding the events. He denies any n/v. He denies any diaphoresis. He denies any CP. No c/o LE swelling. No c/o palpitations. He denies any loss of bowel or bladder control. He reports he has some back pain following his fall yesterday. He states he feels well this morning. He also reports recently being starting of a second medication, Flomax, for his prostate. Review of Systems-Cardiology Review of Systems Constitutional: As described under HPI; No chills, No fever, No malaise Eyes: No blurred vision, No vision change Ears/Nose/Throat: No epistaxis, No nasal drainage, No recent hearing loss Respiratory: As described under HPI Cardiovascular: As described under HPI Gastrointestinal: No constipation, No diarrhea, No nausea, No vomiting Genitourinary: No dysuria, No hematuria Musculoskeletal: As describe under HPI Skin: No rash on exposed areas, No ulcerations on exposed areas Psychiatric/Neurological: syncope; No anxiety, No depression, No seizure, No focal weakness Hematologic: No bleeding abnormalities [id number] Hx Patient Social History Smoking Status: Former Smoker Have you traveled recently?: No Alcohol Use?: Yes Pt feels they are or have been: No Tobacco type used: Cigarettes Past Medical History PMH As described under Assessment. Family Medical History Family Medical History: He reports his mother had a h/o CVA. He reports brother with a congenital heart defect who passed at age 70. Allergies and Home Medications Allergies Coded Allergies: No Known Drug Allergies (Unverified , 07/17/22) Patient Home Medication List Home Medication List Reviewed: Yes Allopurinol (Allopurinol) 300 Mg Tablet, 300 MG PO 1200, (Reported) Entered as Reported by: EDI FAULKNER on 07/18/22920 Last Action: Reviewed Enalapril Maleate (Enalapril Maleate) 20 Mg Tablet, 20 MG PO DAILY, (Reported) Entered as Reported by: EDI FAULKNER on 07/18/22920 Last Action: Reviewed Finasteride (Finasteride) 5 Mg Tablet, 5 MG PO DAILY, (Reported) Entered as Reported by: EDI FAULKNER on 07/18/22920 Last Action: Reviewed Tamsulosin HCl (Flomax) 0.4 Mg Cap, 0.4 MG PO 1300, (Reported) Entered as Reported by: EDI FAULKNER on 07/18/22920 Last Action: Reviewed Physical Exam-Cardiology Physical Exam Vital Signs/I&O 07/18/22 07/18/22 07/18/22 07/18/22 00:54 01:00 01:11 02:00 Pulse 80 71 70 Resp 24 30 B/P (MAP) 128/78 139/58 (85) Pulse Ox 95 95 96 O2 Delivery Room Air Room Air Room Air 07/18/22 07/18/22 07/18/22 07/18/22 04:00 04:00 05:11 07:00 Pulse 74 66 Resp 18 B/P (MAP) 139/76 (97) Pulse Ox 92 96 96 O2 Delivery Room Air Room Air Room Air 07/18/22 07/18/22 07/18/22 08:00 08:53 08:54 Pulse 64 67 65 71 Resp 18 B/P (MAP) 157/82 (107) 178/88 (118) 158/90 (112) 148/90 (109) Pulse Ox 96 O2 Delivery Room Air Capillary Refill : Less Than 3 Seconds Constitutional: AAO x 3, well-developed, well-nourished HEENT: PERRL, hearing is well preserved, oral hygience is good Neck: No carotid bruit; carotid pulses are 2 + bilaterally Respiratory: No accessory muscle use, No respiratory distress; chest expansion is symmetric, chest is bilaterally symmetric, lungs clear to auscultation Cardiovascular: regular rate-rhythm; No JVD; S1 and S2 Gastrointestinal: No tender; soft, round, audible bowel sounds Extremities: no lower extremity edema bilateral Neurologic/Psychiatric: grossly intact (moves all extremities) Skin: No rash on exposed areas, No ulcerations on exposed areas Data Review Labs Laboratory Tests 07/17/22 18:25: White Blood Count 5.8, Red Blood Count 4.38, Hemoglobin 14.1, Hematocrit 40, Mean Corpuscular Volume 91, Mean Corpuscular Hemoglobin 32, Mean Corpuscular Hemoglobin Concent 35, Red Cell Distribution Width 12.7, Platelet Count 175, Mean Platelet Volume 9.5, Immature Granulocyte % (Auto) 1, Neutrophils (%) (Auto) 54, Lymphocytes (%) (Auto) 33, Monocytes (%) (Auto) 12, Eosinophils (%) (Auto) 0, Basophils (%) (Auto) 0, Neutrophils # (Auto) 3.1, Lymphocytes # (Auto) 1.9, Monocytes # (Auto) 0.7, Eosinophils # (Auto) 0.0, Basophils # (Auto) 0.0, Immature Granulocyte # (Auto) 0.1, Sodium Level 132L, Potassium Level 3.6, Chloride Level 100, Carbon Dioxide Level 16L, Anion Gap 16H, Blood Urea Nitrogen 13, Creatinine 0.88, Estimat Glomerular Filtration Rate 87, BUN/Creatinine Ratio 15, Glucose Level 108H, Calcium Level 8.6, Corrected Calcium 8.4L, Magnesium Level 2.0, Total Bilirubin 0.5, Aspartate Amino Transf (AST/SGOT) 31, Alanine Aminotransferase (ALT/SGPT) 16, Alkaline Phosphatase 55, Total Creatine Kinase 416H, Creatine Kinase MB 7.3*H, Myoglobin 336.8H, Troponin I < 0.028, Total Protein 6.8, Albumin 4.2, Serum Alcohol 118H 07/17/22 18:28: Glucometer 108 07/17/22 20:14: Urine Color YELLOW, Urine Clarity CLEAR, Urine pH 5.0, Urine Specific [place] <=1.005, Urine Protein NEGATIVE, Urine Glucose (UA) NEGATIVE, Urine Ketones NEGATIVE, Urine Nitrite NEGATIVE, Urine Bilirubin NEGATIVE, Urine Urobilinogen 0.2, Urine Leukocyte Esterase NEGATIVE, Urine RBC (Auto) NEGATIVE, Urine RBC NONE, Urine WBC NONE, Urine Crystals NONE, Urine Bacteria NEGATIVE, Urine Casts NONE, Urine Mucus NEGATIVE, Urine Culture Indicated NO 07/17/22 22:03: Total Creatine Kinase 462H, Creatine Kinase MB 8.9*H, Myoglobin 276.5H, Troponin I < 0.028 07/18/22 01:15: Troponin I < 0.028 07/18/22 05:00: White Blood Count 6.2, Red Blood Count 4.69, Hemoglobin 15.0, Hematocrit 43, Mean Corpuscular Volume 92, Mean Corpuscular Hemoglobin 32, Mean Corpuscular Hemoglobin Concent 35, Red Cell Distribution Width 12.8, Platelet Count 172, Mean Platelet Volume 9.5, Immature Granulocyte % (Auto) 1, Neutrophils (%) (Auto) 59, Lymphocytes (%) (Auto) 30, Monocytes (%) (Auto) 10, Eosinophils (%) (Auto) 0, Basophils (%) (Auto) 0, Neutrophils # (Auto) 3.6, Lymphocytes # (Auto) 1.9, Monocytes # (Auto) 0.6, Eosinophils # (Auto) 0.0, Basophils # (Auto) 0.0, Immature Granulocyte # (Auto) 0.0, Sodium Level 139, Potassium Level 4.0, Chloride Level 104, Carbon Dioxide Level 20L, Anion Gap 15H, Blood Urea Nitrogen 11, Creatinine 0.81, Estimat Glomerular Filtration Rate 89, BUN/Creatinine Ratio 14, Glucose Level 116H, Calcium Level 8.9, Total Creatine Kinase 441H, Creatine Kinase MB 8.9*H A/P-Cardiology Assessment/Admission Diagnosis Syncope (with posture changes) - likely orthostatic hypotension d/t vol depletion/medications (30 mm postural drop in bp noted during this hospitalization) HTN BPH H/O tobaccoism - quit 30 yrs ago Daily ETOH usage - 5 beers a night Discussion and Recomendations * D/c bp meds * Consider d/c Flomax (Hospitalist Svce to decide) * iv hydration * Echo * Advised to avoid alcohol * Advised good hydration and to consider thigh-high stocking during the daytime * Discussed with his Hospitalist, Dr Payton * Close outpt f/u advised KAILA JUARES MD FACP FAC CCDS Jul 18, 2022 11:41
== END 2022-07-18 17:58 | disposition home or self-care (01) ==
LOC: ER 18:06 → INTOOBSV 22:50 → EDLOC 22:50 → ICU 22:50
PROVIDERS: ADMIT Internal Medicine; ATTEND Family Medicine
DX: I95.1 Orthostatic hypotension (principal); Z87.891 Personal history of nicotine dependence; I10 Essential (primary) hypertension; N40.0 Benign prostatic hyperplasia without lower urinary tract symptoms; F10.10 Alcohol abuse, uncomplicated
CPT/HCPCS: 70450; 71045; 72128; 72131; 72192; 73523; 80048; 80053; 81000; 82550 ×2; 82553 ×2; 82947; 83735; 83874; 84484 ×2; 85025 ×2; 93005; 93041; 99284; C8929; G0378; G0480; 36415; 80320; 93306

== ENCOUNTER → 2022-08-30 | Outpatient (CLI) | payer MEDICARE ==
[~2022-08-30] MED LIST: ALLO300T2 PO; CATHETER FLUSH 10 ML SYR IVP PRN; ENAL20TA16 PO; FINA5TAB6 PO; REGADENOSON 0.4 MG/5 ML SYR (LEXISCAN) IV ONE; TMSL.4C PO
[2022-08-30 09:14] VITALS: BP 195/95
--- NOTE | 2022-09-01 07:58 | STRESS TEST ---
DATE OF SERVICE: 08/30/2022 RESTING AND POST REGADENOSON TECHNETIUM-99M TETROFOSMIN SPECT CT IMAGING Baseline images were carried out after injection of 10.98 mCi of technetium-99m Tetrofosmin. This was followed by 0.4 mg regadenoson and 29.2 mCi of technetium-99m Tetrofosmin for stress imaging. The electrocardiogram showed sinus rhythm and isolated premature ventricular contraction. The electrocardiogram did not change significantly with the regadenoson infusion. The patient reported some chest discomfort following regadenoson infusion. This resolved in a few minutes. No significant electrocardiographic changes were seen. Review of images at rest and following stress indicates a small perfusion defect seen in the basal part of the inferior wall and this appears to be transient. Gated images show normal global left ventricular systolic function and normal regional wall motion. Left ventricular ejection fraction is calculated to be 69%. CONCLUSIONS: 1. This study is suggestive of a small amount of basal inferior wall ischemia. 2. Normal regional wall motion. 3. Normal global left ventricular systolic function with a calculated ejection fraction of 69%. Job ID: [id number] DocumentID: [id number] Dictated Date: 09/01/2022 07:32:11 [employer] Date: 09/01/2022 07:56:31 Dictated By: KAILA JUARES MD, MA, FACP, FACC,
== END ==
LOC: CARD 08:00
PROVIDERS: ATTEND Internal Medicine Cardiovascular Disease
DX: R55 Syncope and collapse (principal)
CPT/HCPCS: 78452; 93017; A9502

== ENCOUNTER → 2022-09-20 | Outpatient (CLI) | payer MEDICARE ==
[~2022-09-20] MED LIST changes: -CATHETER FLUSH 10 ML SYR IVP PRN; -REGADENOSON 0.4 MG/5 ML SYR (LEXISCAN) IV ONE
[2022-09-20 12:02] LABS: HEMATOCRIT 43 % (40-54); HEMOGLOBIN 14.7 g/dL (13.3-17.7); MEAN CORPUSCULAR HEMOGLOBIN 31 pg (25-34); MEAN CORPUSCULAR HGB CONC 34 g/dL (32-36); MEAN CORPUSCULAR VOLUME 91 fL (80-99); MEAN PLATELET VOLUME 9.7 fL (9.0-12.2); PLATELET COUNT 190 10^3/uL (130-400); WHITE BLOOD COUNT 5.3 10^3/uL (4.3-11.0)
[2022-09-20 12:34] LABS: ALBUMIN 4.1 GM/DL (3.2-4.5); BILIRUBIN,TOTAL 0.8 MG/DL (0.1-1.0); CREATININE SERUM 0.82 MG/DL (0.60-1.30); MAGNESIUM 1.9 MG/DL (1.6-2.4); POTASSIUM 4.2 MMOL/L (3.6-5.0)
== END ==
LOC: LAB 11:35
PROVIDERS: ATTEND Internal Medicine Cardiovascular Disease
DX: I25.10 Atherosclerotic heart disease of native coronary artery without angina pectoris (principal); I10 Essential (primary) hypertension; R55 Syncope and collapse; R94.39 Abnormal result of other cardiovascular function study; Z72.89 Other problems related to lifestyle
CPT/HCPCS: 36415; 80053; 80061; 83735; 84443; 85027